=== PATIENT | male | born 1970 | race Caucasian/White ===

== ENCOUNTER 2016-08-02 16:20 | Observation (INO) ==
[2016-08-02 16:44] LABS: Basophils % 0.6 % (0.0-0.8); Eosinophils # 0.3 10*3/uL (0.0-0.87); Eosinophils % 4.4 % (0.00-10.9); Hematocrit 35.7 VOL% (42.0-52.0); Hemoglobin 12.7 GM/DL (14.0-18.0); Immature Granulocytes % 0.3 %; Immature Granulocytes Absolute 0.02 #; Lymphocytes % 29.2 % (21.2-54.2); Mean Corpuscular HGB Conc 35.6 GM/DL (32-36); Mean Corpuscular Hemoglobin 31 PG (27-34); Mean Corpuscular Volume 87.5 FL (87-102); Mean Platelet Volume 10.5 FL (9.6-12.0); Monocytes # 0.5 10*3/uL (0.11-0.8); Monocytes % 7.2 % (1.7-12.7); Neutrophils % 58.3 % (38.7-73.9); Platelet Count 182 T/CUMM (130-400); Red Blood Count 4.08 MC/CUMM (3.8-5.5); Red Cell Distribution Width 13.2 % (9.3-17.3); White Blood Count 6.8 T/CUMM (4-12)
[2016-08-02 16:57] LABS: PT Patient Result 10.7 SECS; Partial Thromboplastin Time 30.4 SECS (0-40)
[2016-08-02 17:02] LABS: Magnesium 1.9 MG/DL (1.8-2.4)
--- NOTE | 2016-08-02 17:07 | XRay Report ---
XR chest 2V Indication: Chest pain. Chest 2 views: Comparison 07/20/2015. Lungs are somewhat hypoinflated on the current exam. Mild peribronchial thickening noted centrally. No focal infiltrate is seen. Heart size and mediastinal contour normal. Impression: Minimal airways disease such as bronchitis or viral syndrome. Findings unchanged from the earlier study. PROCEDURE INTERPRETED AT [facility] DEPARTMENT OF RADIOLOGY Final Report Signed by: Alexander Ryan M.D.
[2016-08-02 17:08] LABS: Alanine Aminotransferase 41 U/L (16-61); Albumin 3.3 G/DL (3.4-5.0); Alkaline Phosphatase 78 U/L (45-117); Aspartate Amino Transferase 26 U/L (0-37); Bilirubin,Total < 0.39 MG/DL (0.2-1.0); Blood Urea Nitrogen 19 MG/DL (7-18); Calcium 8.8 MG/DL (8.5-10.1); Glucose 303 MG/DL (74-106); Osmolality,Calculated 287.7 MOS/KG (273-304); Potassium 3.9 MMOL/L (3.5-5.1); Sodium 138 MMOL/L (136-145); Total Protein 6.3 G/DL (6.4-8.3)
[2016-08-02] MEDS ORDERED: MORPHINE 2 MG/1 ML SYRINGE IV STA (17:10)
[2016-08-02] MEDS ORDERED: ONDANSETRON 4 MG/2 ML VIAL IV STA (17:10)
--- NOTE | 2016-08-02 17:12 | Emergency Department Note ---
IAmelie Brittany, am scribing for, and in the presence of, Desi Chu DO 17: 05. IVlad Debra, DO, personally performed the services described in this documentation, ascribed by Vira Kinsey in my presence, and it is both accurate and complete 712 . Arrival - Arrival Chief Complaint: Chest Pain Stated Complaint: CP ED Nursing Triage Note: Pt c/o Chest pain after eating breakfast this am ( pressure) with nausea. Pt had 2 stents placed at [facility] 4 days ago. Mode of Arrival: Stretcher Limitations: No Limitations Source: Patient Time Seen by Provider: 08/02/16 16:55 - History of Present Illness HPI Narrative: This is a 45 y/o mildly obese white male,who presents to the ED by EMS with c/o CP which started earlier this morning. He states he was seen in [facility] and had 2 stents placed 4 days ago. He reports he is nauseated with the chest pain. He rates the pain as a 6 on a pain scale. He states before EMS arrived at his home , the pain was an 8. He states he received Nitro from EMS which seemed to help mildly. Pt has no other complaints/pain in the ED at this time. PT has a PMHx of CAD, HTN, psychiatric/substance abuse Tx, dyslipidemia, GERD, bowel obstruction, liver problems, pancreatitis, back/neck problems, pseduocyst abdoment, and herniated disk. Pt has had a cardiac cath x 2 stents (Apirl 2016), colon surgery, colecystectomy, and hernia repair. Pt has a family medical hx of lung cancer. Onset (ago): hour(s) (Started ealier this morning) Consistency: constant Severity: moderate Severity scale (1-10): 6 Allergies/Adverse Reactions: Allergies Allergy/AdvReac Type Severity Reaction Status Date / Time No Known Allergies Allergy Verified 06/28/16 10:08 Home Medications: Home Medications Medication Instructions Recorded Confirmed Type Gabapentin 600 mg PO TID #90 capsule 06/28/15 06/28/16 Rx HYDROcodone/ACETAMIN 10-325 [[place] 1 tablet PO BID 12/02/15 06/28/16 History 10-325] busPIRone [Buspar] 5 mg PO DAILY 12/02/15 06/28/16 History hydroCHLOROthiazide 25 mg PO DAILY 12/02/15 06/28/16 History [Hydrochlorothiazide] oxyCODONE/ACETAMINOPHEN 5-325 1 - 2 tablet PO Q6H PRN #20 tablet 12/05/15 Rx [Percocet 5-325] Benzonatate [Tessalon] 100 mg PO TID #10 capsule 06/21/16 06/28/16 Rx metFORMIN [Glucophage] 500 mg PO BID W/MEALS #30 tablet 06/26/16 06/28/16 Rx Dicyclomine Cap/Tab [Bentyl 10 mg PO DAILY PRN #10 capsule 06/28/16 Rx Cap/Tab] Metoclopramide Tab [Reglan Tab] 5 mg PO ACHS #120 tablet 06/28/16 Rx Polyethylene Glycol Powder 17 gm PO DAILY #12 pack 06/28/16 Rx [Miralax] Review of System - Review of System 12 point system: reviewed and no additional remarkable complaints except as stated - Review of System Cardiovascular: Present: chest pain Gastrointestinal: Present: nausea Medical,Surgical,& Family Hx - Medical History Cardio: History of: CAD, Hypertension Psychological: History of: Anxiety Disorders, Psychiatric/Substance Abuse Tx Endocrine: History of: Dyslipidemia Renal: History of: Dialysis (RESOLVED) Gastrointestinal: History of: Bowel Obstruction, GERD, Liver Problems, Pancreatitis, GI Problems (pseudocyst abdomen) Musculoskeletal: History of: Back/Neck Problems, Herniated Disk (disk x 4) - Surgical History Cardiac Surgeries: Sugical HX of: Cardiac Catheterization (x 2 Stents at [facility] May of 2016) Abdominal Surgeries: Surgical HX of: Abdominal Surgery (colon), Cholecystectomy , Hernia Repair - Family History Family History: Reports;: Family Cancer (dad had lung cancer) - Social History Smoking Status: Smoker, status unknown Frequency of Alcohol Use: Frequently Exam Vital Signs: Vital Signs Temperature 97.5 F L 08/02/16 16:50 Pulse Rate 65 08/02/16 16:50 Respiratory Rate 16 08/02/16 16:50 Blood Pressure 102/63 08/02/16 16:50 O2 Sat by Pulse Oximetry 98 08/02/16 16:27 - General General appearance: alert, in no apparent distress, obese (Mildy obese) - Head Head exam: Present: atraumatic, normocephalic, normal inspection - Eye Eye exam: Present: normal appearance, PERRL, EOMI. Absent: nystagmus, miosis, mydriasis - ENT ENT exam: Present: normal exam, normal oropharynx, mucous membranes moist, TM's normal bilaterally, normal external ear exam - Neck Neck exam: Present: normal inspection, full ROM, trachea midline. Absent: tenderness, meningismus, lymphadenopathy, thyromegaly - Chest Chest inspection: Present: normal inspection, symmetric chest wall rise. Absent : tenderness, rash, abscess - Respiratory Respiratory exam: Present: normal lung sounds bilaterally. Absent: prolonged expiratory phase, rales, respiratory distress, rhonchi, stridor, wheezes - Cardiovascular Cardiovascular exam: Present: regular rate, normal rhythm, normal heart sounds. Absent: murmur, rubs, gallop, clicks, JVD - Abdominal Exam Abdominal exam: Present: soft, normal bowel sounds. Absent: distention, tenderness, guarding, rebound, rigidity - Rectal Exam Rectal exam: Present: deferred - Extremities Exam Extremities exam: Present: normal inspection, full ROM, normal capillary refill. Absent: tenderness, pedal edema, joint swelling, calf tenderness - Back Exam Back exam: Present: normal inspection, full ROM. Absent: tenderness, muscle spasm, rashes - Neurological Exam Neurological exam: Present: alert, oriented X3, CN II-XII intact. Absent: motor sensory deficit - Psychiatric Psychiatric exam: Present: anxious. Absent: normal affect, normal mood, flat affect, manic - Skin Skin exam: Present: warm, dry, intact, normal color. Absent: rash, cyanosis, diaphoresis, erythema, pallor, mottled Results - Labs CBC & BMP: 08/02/16 16:37 08/02/16 16:37 Lab Results: I have reviewed the patients labs Labs: Laboratory Tests 08/02/16 08/02/16 08/02/16 16:37 16:37 16:37 WBC 6.8 RBC 4.08 Hgb 12.7 L Hct 35.7 L MCV 87.5 MCH 31 MCHC 35.6 RDW 13.2 Plt Count 182 MPV 10.5 Neut % (Auto) 58.3 Lymph % (Auto) 29.2 [place] % (Auto) 7.2 Eos % (Auto) 4.4 Baso % (Auto) 0.6 Neut # (Auto) 4.0 Lymph # (Auto) 2.0 [place] # (Auto) 0.5 Eos # (Auto) 0.3 Baso # (Auto) 0.0 Immature Gran % 0.3 Nucleated RBC % 0.0 Immature Gran # 0.02 Nucleated RBCs # 0.00 INR 1.0 PT Patient/Control Mix 10.7 Circ Anticoag PTT 30.4 D Sodium 138 Potassium 3.9 Chloride 104 Carbon Dioxide 26 Anion Gap 11.9 BUN 19 H Creatinine 1.10 GFR Calculation 102 BUN/Creatinine Ratio 17.00 Glucose 303 H Calculated Osmolality 287.7 Calcium 8.8 Magnesium Total Bilirubin < 0.39 AST 26 ALT 41 Alkaline Phosphatase 78 Total Creatine Kinase CK-MB (CK-2) Troponin I Total Protein 6.3 L Albumin 3.3 L Globulin 3.0 Albumin/Globulin Ratio 1.1 Lipase Urine Color Urine Appearance Urine pH Ur Specific [place] Urine Protein Urine Glucose (UA) Urine Ketones Urine Blood Urine Nitrate Urine Bilirubin Urine Urobilinogen Urine Leukocytes Urine WBC Ur Squamous Epith Cells Ur Culture Indicated? 08/02/16 08/02/16 08/02/16 16:37 16:37 17:12 WBC RBC Hgb Hct MCV MCH MCHC RDW Plt Count MPV Neut % (Auto) Lymph % (Auto) [place] % (Auto) Eos % (Auto) Baso % (Auto) Neut # (Auto) Lymph # (Auto) [place] # (Auto) Eos # (Auto) Baso # (Auto) Immature Gran % Nucleated RBC % Immature Gran # Nucleated RBCs # INR PT Patient/Control Mix Circ Anticoag PTT Sodium Potassium Chloride Carbon Dioxide Anion Gap BUN Creatinine GFR Calculation BUN/Creatinine Ratio Glucose Calculated Osmolality Calcium Magnesium 1.9 Total Bilirubin AST ALT Alkaline Phosphatase Total Creatine Kinase 77 CK-MB (CK-2) 1.6 Troponin I 6.010 H Total Protein Albumin Globulin Albumin/Globulin Ratio Lipase 496.0 H Urine Color Urine Appearance Urine pH Ur Specific [place] Urine Protein Urine Glucose (UA) Urine Ketones Urine Blood Urine Nitrate Urine Bilirubin Urine Urobilinogen Urine Leukocytes Urine WBC Ur Squamous Epith Cells Ur Culture Indicated? 08/02/16 17:13 WBC RBC Hgb Hct MCV MCH MCHC RDW Plt Count MPV Neut % (Auto) Lymph % (Auto) [place] % (Auto) Eos % (Auto) Baso % (Auto) Neut # (Auto) Lymph # (Auto) [place] # (Auto) Eos # (Auto) Baso # (Auto) Immature Gran % Nucleated RBC % Immature Gran # Nucleated RBCs # INR PT Patient/Control Mix Circ Anticoag PTT Sodium Potassium Chloride Carbon Dioxide Anion Gap BUN Creatinine GFR Calculation BUN/Creatinine Ratio Glucose Calculated Osmolality Calcium Magnesium Total Bilirubin AST ALT Alkaline Phosphatase Total Creatine Kinase CK-MB (CK-2) Troponin I Total Protein Albumin Globulin Albumin/Globulin Ratio Lipase Urine Color Yellow Urine Appearance Clear Urine pH 6.0 Ur Specific [place] 1.029 Urine Protein Negative Urine Glucose (UA) >=500 Urine Ketones 5 Urine Blood Negative Urine Nitrate Negative Urine Bilirubin Negative Urine Urobilinogen < 2.0 H Urine Leukocytes Negative Urine WBC 1 Ur Squamous Epith Cells Occasional Ur Culture Indicated? Not indicated - Diagnostic Findings Procedure: Chest x-ray: report reviewed by me (Minimal airways disease such as bronchitis or viral syndrome. Findings unchanged from the earlier study. ) Disposition Clinical Impression: Chest pain, Elevated troponin Case discussed with: patient Disposition: Still a Patient Condition: Stable Time of Disposition: 18:49
[2016-08-02] MEDS ORDERED: MORPHINE 2 MG/1 ML SYRINGE ONE (17:20)
[2016-08-02] MEDS ORDERED: ONDANSETRON 4 MG/2 ML VIAL ONE (17:20)
[2016-08-02 17:37] LABS: Apearance,Urine CLEAR (Clear); Bilirubin,Urine Negative (Negative); Blood, Urine Negative (Negative); Glucose,Urine (UA) >=500 mg/dL (Negative); Ketones,Urine 5 mg/dL (Negative); Nitrite,Urine Negative (Negative); Protein,Urine Negative; Squamous Epithelial Cell,Urine Occasional /HPF (0-10); Urine Color Yellow (Yellow); Urine Specific Gravity 1.029 (1.001-1.035); Urine Urobilinogen < 2.0 EU/DL (0.2-1.0); WBC,Urine 1 /HPF (0-6)
[2016-08-02 17:50] LABS: Barbiturates Screen,Urine Negative (Negative); Benzodiazepines Screen,Urine Positive (Negative); Cannabinoid Screen,Urine Negative (Negative); Opiate Screen,Urine Positive (Negative); Phencyclidine Screen,Urine Negative (Negative)
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
[2016-08-02] MEDS ORDERED: GLUCAGON 1 MG VIAL IM PRN ×3 (21:04)
[2016-08-02] MEDS ORDERED: DOCUSATE SODIUM 100 MG CAPSULE PO PRN (21:04)
[2016-08-02] MEDS ORDERED: DICYCLOMINE 10 MG CAPSULE PO PRN (21:04)
[2016-08-02] MEDS ORDERED: BISACODYL 5 MG TABLET PO PRN (21:04)
[2016-08-02] MEDS ORDERED: DEXTROSE 50% 25 GM/50 ML VIAL IV PRN ×3 (21:04)
[2016-08-02] MEDS ORDERED: ONDANSETRON 4 MG/2 ML VIAL IV PRN (21:04)
[2016-08-02] MEDS: INSULIN REGULAR 100 UNIT/ML SUBCUT SCH (21:44)
[2016-08-02] MEDS: ENOXAPARIN 40 MG/0.4 ML SYRINGE SUBCUT SCH (22:01)
[2016-08-02] MEDS: GABAPENTIN 300 MG CAPSULE PO SCH (22:01)
[2016-08-02] MEDS: METOCLOPRAMIDE 5 MG TABLET PO SCH (22:01)
[2016-08-02] MEDS: MORPHINE 2 MG/1 ML SYRINGE IV PRN (22:01)
[2016-08-02] MEDS: BENZONATATE 100 MG CAPSULE PO SCH (22:06)
[2016-08-03 00:56] LABS: Apearance,Urine CLEAR (Clear); Bilirubin,Urine Negative (Negative); Blood, Urine Negative (Negative); Glucose,Urine (UA) >=500 mg/dL (Negative); Ketones,Urine Negative (Negative); Mucus,Urine Occasional /LPF (Occasional); Nitrite,Urine Negative (Negative); Protein,Urine Negative; Urine Color Yellow (Yellow); Urine Specific Gravity 1.012 (1.001-1.035); Urine Urobilinogen < 2.0 EU/DL (0.2-1.0); WBC,Urine <1 /HPF (0-6)
[2016-08-03] MEDS: MORPHINE 2 MG/1 ML SYRINGE IV PRN (04:04)
--- NOTE | 2016-08-03 05:00 | EKG Report ---
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
[2016-08-03 05:20] LABS: Basophils # 0.1 10*3/uL (0.0-0.2); Basophils % 0.9 % (0.0-0.8); Eosinophils # 0.3 10*3/uL (0.0-0.87); Eosinophils % 4.9 % (0.00-10.9); Hematocrit 40.2 VOL% (42.0-52.0); Hemoglobin 13.7 GM/DL (14.0-18.0); Immature Granulocytes % 0.3 %; Immature Granulocytes Absolute 0.02 #; Lymphocytes # 2.1 10*3/uL (1.4-4.0); Lymphocytes % 32.6 % (21.2-54.2); Mean Corpuscular HGB Conc 34.1 GM/DL (32-36); Mean Corpuscular Hemoglobin 30 PG (27-34); Mean Corpuscular Volume 87.6 FL (87-102); Mean Platelet Volume 10.5 FL (9.6-12.0); Monocytes # 0.5 10*3/uL (0.11-0.8); Monocytes % 7.5 % (1.7-12.7); Neutrophils # 3.5 10*3/uL (1.4-7.4); Neutrophils % 53.8 % (38.7-73.9); Platelet Count 185 T/CUMM (130-400); Red Blood Count 4.59 MC/CUMM (3.8-5.5); Red Cell Distribution Width 13.3 % (9.3-17.3); White Blood Count 6.6 T/CUMM (4-12)
[2016-08-03 05:52] LABS: Osmolality,Calculated 287.3 MOS/KG (273-304); Potassium 4.2 MMOL/L (3.5-5.1); Risk Ratio 4.09; VLDL CHOLESTEROL 42.6 MG/DL
--- NOTE | 2016-08-03 07:13 | EKG Report ---
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
--- NOTE | 2016-08-03 07:13 | EKG Report ---
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
--- NOTE | 2016-08-03 08:09 | EKG Report ---
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
[2016-08-03] MEDS: INSULIN REGULAR 100 UNIT/ML SUBCUT SCH ×3 (08:13→16:56)
[2016-08-03] MEDS ORDERED: ATORVASTATIN 40 MG TABLET PO SCH (09:00)
--- NOTE | 2016-08-03 09:32 | Cardiology Consult Note ---
Assessment and Plan (1) Chest pain Status: Acute Assessment and plan: 1. 45-year-old white male smoker with history of alcoholism (no alcohol for about 12 days), reportedly had KS at [facility] with several stents placed 5 days ago, who presented here with waxing and waning chest pain for hours lasting up to 30 minutes at a time with no acute EKG changes, and troponin elevation (normal CK and CK-MB) which is gradually declining consistent with previous KS last week. 2. History of pseudocyst and multiple abdominal surgeries, reportedly last 3 years ago; he also had complicated open cholecystectomy with adhesions one year ago by Dr. Schmidt. He takes chronic Jessie for abdominal pain. 3. He is anxious about having heart problems, although his chest pain is atypical and has pleuritic component with no exertional component. However given his recent stents and KS will need to get his records from [facility] did this determine whether he needs further evaluation for coronary ischemia. 4. We discussed the absolute need to stop all smoking immediately; he is agree with this and requests nicotine patch. Current Visit: Yes History of Present Illness - Consult Narrative History of present illness: Mr. Mcclendon is a 45 year old male who had an arrest associated with falling off a ladder a couple years ago, has had multiple ER admissions with hyperglycemia and miscellaneous complaints. He seems to have chronic abdominal pain for which he takes outpatient narcotics with cholecystectomy with adhesions a year ago. He reportedly had a pseudocyst with multiple surgeries from pancreatitis and his alcoholism several years ago. He reportedly had an KS at [facility] when he was cutting the grass in [facility]. He reportedly put multiple stents 5 days ago. He reported 9 AM yesterday he developed persistent chest pain which waxed and waned lasting 15-30 minutes at a time. There was a pleuritic component. He felt better when he laid on his back oftentimes. He had no change with walking. It is substernal he reports it is "similar like my heart attack pain but a lot less". Admission here he had no acute EKG changes but had elevated troponin which is gradually declining consistent with previous KS last week. He has no shortness of breath and is now without complaint, but is anxious about his heart. He continued to smoke but has not had one since yesterday. He has been off alcohol for 10 days and was in a rehab facility when the pain started ([facility]). He did have recurrence of his chest pain this morning although it did resolve in the time I saw him. CC: Erinn Srinivasan MD - Home Medications and Allergies Home Medications: Home Medications Medication Instructions Recorded Confirmed Type Gabapentin 600 mg PO TID #90 capsule 06/28/15 08/02/16 Rx HYDROcodone/ACETAMIN 10-325 [Jessie 1 tablet PO BID 12/02/15 08/02/16 History 10-325] busPIRone [Buspar] 5 mg PO DAILY 12/02/15 08/02/16 History hydroCHLOROthiazide 25 mg PO DAILY 12/02/15 08/02/16 History [Hydrochlorothiazide] oxyCODONE/ACETAMINOPHEN 5-325 1 - 2 tablet PO Q6H PRN #20 tablet 12/05/15 Rx [Percocet 5-325] Benzonatate [Tessalon] 100 mg PO TID #10 capsule 06/21/16 08/02/16 Rx metFORMIN [Glucophage] 500 mg PO BID W/MEALS #30 tablet 06/26/16 08/02/16 Rx Dicyclomine Cap/Tab [Bentyl 10 mg PO DAILY PRN #10 capsule 06/28/16 08/02/16 Rx Cap/Tab] Metoclopramide Tab [Reglan Tab] 5 mg PO ACHS #120 tablet 06/28/16 08/02/16 Rx Polyethylene Glycol Powder 17 gm PO DAILY #12 pack 06/28/16 08/02/16 Rx [Miralax] Aspirin 81 mg PO DAILY 08/03/16 08/03/16 History Atorvastatin [Lipitor] 40 mg PO DAILY 08/03/16 08/03/16 History Ticagrelor [Brilinta] 90 mg PO DAILY 08/03/16 08/03/16 History Allergies/Adverse Reactions: Allergies Allergy/AdvReac Type Severity Reaction Status Date / Time No Known Allergies Allergy Verified 06/28/16 10:08 Medical,Surgical,& Family Hx - Medical History Cardio: History of: CAD, Hypertension, KS Psychological: History of: Anxiety Disorders, Psychiatric/Substance Abuse Tx Endocrine: History of: Dyslipidemia Gastrointestinal: History of: Bowel Obstruction, GERD, Liver Problems, Pancreatitis, GI Problems (pseudocyst abdomen) Musculoskeletal: History of: Back/Neck Problems, Herniated Disk (disk x 4) - Surgical History Cardiac Surgeries: Sugical HX of: Cardiac Catheterization (x 2 Stents at [facility] May of 2016) Abdominal Surgeries: Surgical HX of: Abdominal Surgery (colon), Cholecystectomy , Hernia Repair - Family History Family History: Reports;: Family Cancer (dad had lung cancer) - Social History Smoking Status: Current every day smoker Frequency of Alcohol Use: Frequently Type of Drug Use: None Physical Examination Vital Signs Temp Pulse Resp BP Pulse Ox 97.5 F L 65 16 102/63 98 08/02/16 16:27 08/02/16 16:27 08/02/16 16:27 08/02/16 16:27 08/02/16 16:27 General: Present: Appears Well, No Apparent Distress Neck: Present: Supple Neck, Midline Trachea, No JVD/HJR Cardiac: Present: Bradycardia. Absent: Systolic Murmur, Diastolic Murmur Lungs: Present: No Wheeze, Rales, Rhonchi. Absent: Wheezes Neuro: Absent: DTR Norm/Equal U/L Extrem Abdomen: Present: Soft. Absent: Tender Extremities: Absent: Edema, Cool Result/EKG - Labs CBC & BMP: 08/03/16 05:05 08/03/16 05:05 Labs: Laboratory Results - last 24 hr 08/02/16 08/02/16 08/02/16 16:37 16:37 16:37 WBC 6.8 RBC 4.08 Hgb 12.7 L Hct 35.7 L MCV 87.5 MCH 31 MCHC 35.6 RDW 13.2 Plt Count 182 MPV 10.5 Neut % (Auto) 58.3 Lymph % (Auto) 29.2 [place] % (Auto) 7.2 Eos % (Auto) 4.4 Baso % (Auto) 0.6 Neut # (Auto) 4.0 Lymph # (Auto) 2.0 [place] # (Auto) 0.5 Eos # (Auto) 0.3 Baso # (Auto) 0.0 Immature Gran % 0.3 Nucleated RBC % 0.0 Immature Gran # 0.02 Nucleated RBCs # 0.00 INR 1.0 PT Patient/Control Mix 10.7 D-Dimer, Quantitative Circ Anticoag PTT 30.4 D Sodium 138 Potassium 3.9 Chloride 104 Carbon Dioxide 26 Anion Gap 11.9 BUN 19 H Creatinine 1.10 GFR Calculation 102 BUN/Creatinine Ratio 17.00 Glucose 303 H POC Glucose Calculated Osmolality 287.7 Calcium 8.8 Magnesium Total Bilirubin < 0.39 AST 26 ALT 41 Alkaline Phosphatase 78 Total Creatine Kinase CK-MB (CK-2) Troponin I B-Natriuretic Peptide Total Protein 6.3 L Albumin 3.3 L Globulin 3.0 Albumin/Globulin Ratio 1.1 Triglycerides Cholesterol LDL Cholesterol VLDL Cholesterol HDL Cholesterol Heart Disease Risk Ratio Lipase b-Hydroxybutyric mmol/L TSH 3rd Generation Urine Color Urine Appearance Urine pH Ur Specific [place] Urine Protein Urine Glucose (UA) Urine Ketones Urine Blood Urine Nitrate Urine Bilirubin Urine Urobilinogen Urine Leukocytes Urine WBC Ur Squamous Epith Cells Urine Mucus Ur Culture Indicated? Urine Opiates Screen Ur Barbiturates Screen Ur Phencyclidine Scrn U Amphetamine/Methamph U Benzodiazepines Scrn U Cocaine Metab Screen U Cannabinoids Screen 08/02/16 08/02/16 08/02/16 16:37 16:37 17:12 WBC RBC Hgb Hct MCV MCH MCHC RDW Plt Count MPV Neut % (Auto) Lymph % (Auto) [place] % (Auto) Eos % (Auto) Baso % (Auto) Neut # (Auto) Lymph # (Auto) [place] # (Auto) Eos # (Auto) Baso # (Auto) Immature Gran % Nucleated RBC % Immature Gran # Nucleated RBCs # INR PT Patient/Control Mix D-Dimer, Quantitative Circ Anticoag PTT Sodium Potassium Chloride Carbon Dioxide Anion Gap BUN Creatinine GFR Calculation BUN/Creatinine Ratio Glucose POC Glucose Calculated Osmolality Calcium Magnesium 1.9 Total Bilirubin AST ALT Alkaline Phosphatase Total Creatine Kinase 77 CK-MB (CK-2) 1.6 Troponin I 6.010 H B-Natriuretic Peptide Total Protein Albumin Globulin Albumin/Globulin Ratio Triglycerides Cholesterol LDL Cholesterol VLDL Cholesterol HDL Cholesterol Heart Disease Risk Ratio Lipase 496.0 H b-Hydroxybutyric mmol/L TSH 3rd Generation Urine Color Urine Appearance Urine pH Ur Specific [place] Urine Protein Urine Glucose (UA) Urine Ketones Urine Blood Urine Nitrate Urine Bilirubin Urine Urobilinogen Urine Leukocytes Urine WBC Ur Squamous Epith Cells Urine Mucus Ur Culture Indicated? Urine Opiates Screen Ur Barbiturates Screen Ur Phencyclidine Scrn U Amphetamine/Methamph U Benzodiazepines Scrn U Cocaine Metab Screen U Cannabinoids Screen 08/02/16 08/02/16 08/02/16 17:13 17:13 18:26 WBC RBC Hgb Hct MCV MCH MCHC RDW Plt Count MPV Neut % (Auto) Lymph % (Auto) [place] % (Auto) Eos % (Auto) Baso % (Auto) Neut # (Auto) Lymph # (Auto) [place] # (Auto) Eos # (Auto) Baso # (Auto) Immature Gran % Nucleated RBC % Immature Gran # Nucleated RBCs # INR PT Patient/Control Mix D-Dimer, Quantitative Circ Anticoag PTT Sodium Potassium Chloride Carbon Dioxide Anion Gap BUN Creatinine GFR Calculation BUN/Creatinine Ratio Glucose POC Glucose Calculated Osmolality Calcium Magnesium Total Bilirubin AST ALT Alkaline Phosphatase Total Creatine Kinase CK-MB (CK-2) Troponin I B-Natriuretic Peptide Total Protein Albumin Globulin Albumin/Globulin Ratio Triglycerides Cholesterol LDL Cholesterol VLDL Cholesterol HDL Cholesterol Heart Disease Risk Ratio Lipase b-Hydroxybutyric mmol/L 0.1 TSH 3rd Generation Urine Color Yellow Urine Appearance Clear Urine pH 6.0 Ur Specific [place] 1.029 Urine Protein Negative Urine Glucose (UA) >=500 Urine Ketones 5 Urine Blood Negative Urine Nitrate Negative Urine Bilirubin Negative Urine Urobilinogen < 2.0 H Urine Leukocytes Negative Urine WBC 1 Ur Squamous Epith Cells Occasional Urine Mucus Ur Culture Indicated? Not indicated Urine Opiates Screen Positive H Ur Barbiturates Screen Negative Ur Phencyclidine Scrn Negative U Amphetamine/Methamph Negative U Benzodiazepines Scrn Positive H U Cocaine Metab Screen Negative U Cannabinoids Screen Negative 08/02/16 08/02/16 08/02/16 22:09 22:09 22:09 WBC RBC Hgb Hct MCV MCH MCHC RDW Plt Count MPV Neut % (Auto) Lymph % (Auto) [place] % (Auto) Eos % (Auto) Baso % (Auto) Neut # (Auto) Lymph # (Auto) [place] # (Auto) Eos # (Auto) Baso # (Auto) Immature Gran % Nucleated RBC % Immature Gran # Nucleated RBCs # INR PT Patient/Control Mix D-Dimer, Quantitative <= 0.5 Circ Anticoag PTT Sodium Potassium Chloride Carbon Dioxide Anion Gap BUN Creatinine GFR Calculation BUN/Creatinine Ratio Glucose POC Glucose Calculated Osmolality Calcium Magnesium Total Bilirubin AST ALT Alkaline Phosphatase Total Creatine Kinase CK-MB (CK-2) Troponin I B-Natriuretic Peptide 30 Total Protein Albumin Globulin Albumin/Globulin Ratio Triglycerides Cholesterol LDL Cholesterol VLDL Cholesterol HDL Cholesterol Heart Disease Risk Ratio Lipase b-Hydroxybutyric mmol/L TSH 3rd Generation 6.950 H Urine Color Urine Appearance Urine pH Ur Specific [place] Urine Protein Urine Glucose (UA) Urine Ketones Urine Blood Urine Nitrate Urine Bilirubin Urine Urobilinogen Urine Leukocytes Urine WBC Ur Squamous Epith Cells Urine Mucus Ur Culture Indicated? Urine Opiates Screen Ur Barbiturates Screen Ur Phencyclidine Scrn U Amphetamine/Methamph U Benzodiazepines Scrn U Cocaine Metab Screen U Cannabinoids Screen 08/02/16 08/03/16 08/03/16 22:09 00:00 01:34 WBC RBC Hgb Hct MCV MCH MCHC RDW Plt Count MPV Neut % (Auto) Lymph % (Auto) [place] % (Auto) Eos % (Auto) Baso % (Auto) Neut # (Auto) Lymph # (Auto) [place] # (Auto) Eos # (Auto) Baso # (Auto) Immature Gran % Nucleated RBC % Immature Gran # Nucleated RBCs # INR PT Patient/Control Mix D-Dimer, Quantitative Circ Anticoag PTT Sodium Potassium Chloride Carbon Dioxide Anion Gap BUN Creatinine GFR Calculation BUN/Creatinine Ratio Glucose POC Glucose Calculated Osmolality Calcium Magnesium Total Bilirubin AST ALT Alkaline Phosphatase Total Creatine Kinase 71 CK-MB (CK-2) 1.4 Troponin I 5.670 H 5.410 H B-Natriuretic Peptide Total Protein Albumin Globulin Albumin/Globulin Ratio Triglycerides Cholesterol LDL Cholesterol VLDL Cholesterol HDL Cholesterol Heart Disease Risk Ratio Lipase b-Hydroxybutyric mmol/L TSH 3rd Generation Urine Color Yellow Urine Appearance Clear Urine pH 5.0 Ur Specific [place] 1.012 Urine Protein Negative Urine Glucose (UA) >=500 Urine Ketones Negative Urine Blood Negative Urine Nitrate Negative Urine Bilirubin Negative Urine Urobilinogen < 2.0 H Urine Leukocytes Negative Urine WBC <1 Ur Squamous Epith Cells Urine Mucus Occasional Ur Culture Indicated? Not indicated Urine Opiates Screen Ur Barbiturates Screen Ur Phencyclidine Scrn U Amphetamine/Methamph U Benzodiazepines Scrn U Cocaine Metab Screen U Cannabinoids Screen 08/03/16 08/03/16 08/03/16 05:05 05:05 05:05 WBC 6.6 RBC 4.59 Hgb 13.7 L Hct 40.2 L MCV 87.6 MCH 30 MCHC 34.1 RDW 13.3 Plt Count 185 MPV 10.5 Neut % (Auto) 53.8 Lymph % (Auto) 32.6 [place] % (Auto) 7.5 Eos % (Auto) 4.9 Baso % (Auto) 0.9 H Neut # (Auto) 3.5 Lymph # (Auto) 2.1 [place] # (Auto) 0.5 Eos # (Auto) 0.3 Baso # (Auto) 0.1 Immature Gran % 0.3 Nucleated RBC % 0.0 Immature Gran # 0.02 Nucleated RBCs # 0.00 INR PT Patient/Control Mix D-Dimer, Quantitative Circ Anticoag PTT Sodium 141 Potassium 4.2 Chloride 107 Carbon Dioxide 27 Anion Gap 11.2 BUN 15 Creatinine 1.00 GFR Calculation 114 BUN/Creatinine Ratio 15.00 Glucose 202 H POC Glucose Calculated Osmolality 287.3 Calcium 9.0 Magnesium Total Bilirubin AST ALT Alkaline Phosphatase Total Creatine Kinase 60 CK-MB (CK-2) 1.6 Troponin I 5.570 H B-Natriuretic Peptide Total Protein Albumin Globulin Albumin/Globulin Ratio Triglycerides 213 H Cholesterol 131 LDL Cholesterol 80.0 VLDL Cholesterol 42.6 HDL Cholesterol 32 L Heart Disease Risk Ratio 4.09 Lipase 452.0 H b-Hydroxybutyric mmol/L TSH 3rd Generation Urine Color Urine Appearance Urine pH Ur Specific [place] Urine Protein Urine Glucose (UA) Urine Ketones Urine Blood Urine Nitrate Urine Bilirubin Urine Urobilinogen Urine Leukocytes Urine WBC Ur Squamous Epith Cells Urine Mucus Ur Culture Indicated? Urine Opiates Screen Ur Barbiturates Screen Ur Phencyclidine Scrn U Amphetamine/Methamph U Benzodiazepines Scrn U Cocaine Metab Screen U Cannabinoids Screen 08/03/16 07:14 WBC RBC Hgb Hct MCV MCH MCHC RDW Plt Count MPV Neut % (Auto) Lymph % (Auto) [place] % (Auto) Eos % (Auto) Baso % (Auto) Neut # (Auto) Lymph # (Auto) [place] # (Auto) Eos # (Auto) Baso # (Auto) Immature Gran % Nucleated RBC % Immature Gran # Nucleated RBCs # INR PT Patient/Control Mix D-Dimer, Quantitative Circ Anticoag PTT Sodium Potassium Chloride Carbon Dioxide Anion Gap BUN Creatinine GFR Calculation BUN/Creatinine Ratio Glucose POC Glucose 151 H Calculated Osmolality Calcium Magnesium Total Bilirubin AST ALT Alkaline Phosphatase Total Creatine Kinase CK-MB (CK-2) Troponin I B-Natriuretic Peptide Total Protein Albumin Globulin Albumin/Globulin Ratio Triglycerides Cholesterol LDL Cholesterol VLDL Cholesterol HDL Cholesterol Heart Disease Risk Ratio Lipase b-Hydroxybutyric mmol/L TSH 3rd Generation Urine Color Urine Appearance Urine pH Ur Specific [place] Urine Protein Urine Glucose (UA) Urine Ketones Urine Blood Urine Nitrate Urine Bilirubin Urine Urobilinogen Urine Leukocytes Urine WBC Ur Squamous Epith Cells Urine Mucus Ur Culture Indicated? Urine Opiates Screen Ur Barbiturates Screen Ur Phencyclidine Scrn U Amphetamine/Methamph U Benzodiazepines Scrn U Cocaine Metab Screen U Cannabinoids Screen
[2016-08-03] MEDS: TICAGRELOR 90 MG TABLET PO SCH (10:12)
[2016-08-03] MEDS: ASPIRIN CHEW 81 MG TABLET PO SCH (10:12)
[2016-08-03] MEDS: METOCLOPRAMIDE 5 MG TABLET PO SCH ×4 (10:12→21:10)
[2016-08-03] MEDS: hydroCHLOROthiazide 25 MG TABLET PO SCH (10:13)
[2016-08-03] MEDS: FOLIC ACID 1 MG TABLET PO SCH (10:13)
[2016-08-03] MEDS: busPIRone 5 MG TABLET PO SCH (10:13)
[2016-08-03] MEDS: GABAPENTIN 300 MG CAPSULE PO SCH ×3 (10:14→21:10)
[2016-08-03] MEDS: POLYETHYLENE GLYCOL POWDER 17 GM PACK PO SCH (10:14)
[2016-08-03] MEDS: ATORVASTATIN 40 MG TABLET PO SCH (10:15)
[2016-08-03] MEDS: MULTIVITAMIN (OCUVITE) TABLET PO SCH (10:15)
[2016-08-03] MEDS: ISOSORBIDE MONONITRATE 30 MG TABLET PO SCH (10:16)
[2016-08-03] MEDS: THIAMINE 100 MG TABLET PO SCH (10:16)
[2016-08-03] MEDS: NICOTINE 14 MG/24 HR PATCH TRANSDERM SCH (10:16)
[2016-08-03] MEDS: PANTOPRAZOLE 40 MG TABLET PO SCH (10:19)
[2016-08-03] MEDS: LISINOPRIL 2.5 MG TABLET PO SCH (10:19)
[2016-08-03] MEDS: BENZONATATE 100 MG CAPSULE PO SCH ×2 (10:21→15:59)
--- NOTE | 2016-08-03 13:32 | ECHO Report ---
Bry Mcclendon Exam Date: 08/03/2016 09:16 Referring Physician: Technologist: Raven Shay YUNI Age: 45 Ht (in): 71 Wt (lb): 228 Gender: M Exam Location: [facility] Echo Indications: Chest pain, unspecified, [place] with stents 5 days ago, hx alcoholism, Nicotine dependence, cigarettes, uncomplicated, Essential (primary) hypertension BP: 101 / 62 HR: 52 Rhythm: Sinus Technical Quality: IMPRESSIONS 1-2+ left atrial enlargement 1+ concentric LVH Normal LV systolic function with ejection fraction estimated 55% without segmental wall motion abnormality No significant valve abnormalitiy noted MEASUREMENTS (Male / Female) Normal Values 2D ECHO LV Diastolic Diameter PLAX 5.5 cm 4.2 - 5.9 / 3.9 - 5.3 cm LV Systolic Diameter PLAX 4.0 cm LV Fractional Shortening PLAX 27.5 % IVS Diastolic Thickness 1.2 cm 0.6 - 1.0 / 0.6 - 0.9 cm LVPW Diastolic Thickness 1.2 cm 0.6 - 1.0 / 0.6 - 0.9 cm RV Internal Dim ED PLAX 3.6 cm Aortic Root Diameter 3.6 cm LA Systolic Diameter LX 4.4 cm 3.0 - 4.0 / 2.7 - 3.8 cm FINDINGS Left Ventricle Normal left ventricular cavity size. Mild left ventricular hypertrophy. Left ventricular ejection fraction is estimated at Right Ventricle The right ventricle is normal in size and function. Right Atrium The right atrium is mildly enlarged. Left Atrium The left atrium is mildly enlarged. Mitral Valve Mildly thickened mitral valve. Trace mitral valve regurgitation. Aortic Valve Morphologically normal aortic valve without significant sclerosis or stenosis. There is no aortic regurgitation. Tricuspid Valve Morphologically normal tricuspid valve. Trace tricuspid valve regurgitation. Pulmonic Valve Morphologically normal pulmonic valve without significant stenosis. There is no pulmonic regurgitation. Pericardium Normal pericardium without effusion. Aorta Normal ascending aorta dimension. Ravinder Varma (Electronically Signed) Final Date: 03 August 2016 13:31
[2016-08-03] MEDS ORDERED: DIAZEPAM 5 MG TABLET PO ONE (14:05)
[2016-08-03] MEDS ORDERED: diphenhydrAMINE CAP 50 MG CAPSULE PO ONE (14:06)
[2016-08-03] MEDS ORDERED: diphenhydrAMINE CAP 25 MG CAPSULE PO ONE (14:07)
[2016-08-03] MEDS ORDERED: MAGNESIUM SULF RIDER 2 GM in PREMIX 1 EACH IV PRN (14:07)
[2016-08-03] MEDS ORDERED: POTASSIUM CHLORIDE RIDER 10 MEQ in PREMIX 1 EACH IV PRN (14:07)
--- NOTE | 2016-08-03 14:07 | Event Note ---
Mr. rea is very anxious about his coronary artery disease and recurrent chest pain. "Just do not let me doc". We are unable to get his records [facility]. Given his recent semi-intervention and similar chest pain recurrence (albeit with some atypical features), think heart catheterization this afternoon would be important to rule out significant CAD/stent malposition, etc. I discussed with the patient the risks and benefits of heart catheterization including but not limited to: , stroke, heart attack, vascular damage, reaction to medicine or dye, bleeding requiring blood transfusion, failure of the procedure, and the possible need for planned or emergency surgery. I have answered all the patient's questions regarding the procedure, and the patient is agreeable to proceed.
[2016-08-03] MEDS ORDERED: diphenhydrAMINE CAP 25 MG CAPSULE ONE (14:53)
[2016-08-03] MEDS ORDERED: DIAZEPAM 5 MG TABLET ONE (14:53)
[2016-08-03] MEDS ORDERED: LIDOCAINE 1% 20 ML VIAL ONE (14:55)
[2016-08-03] MEDS ORDERED: MIDAZOLAM 2 MG/2 ML VIAL ONE ×2 (14:56→15:06)
[2016-08-03] MEDS ORDERED: HYDROmorphone 2 MG/1 ML VIAL ONE (14:56)
--- NOTE | 2016-08-03 15:44 | Cardiac Catheterization ---
Date of Procedure:: 08/03/16 Post-op diagnosis: same Procedure: Procedure performed: 1. Left heart catheterization 2. Coronary angiography 3. Left ventriculography 4. Left femoral arteriotomy closed with Angio-Seal device Progress; scratch 45-year-old an ND and multiple stents at [facility] last Thursday who came in with recurrent chest pain with troponin elevation suggesting non-STEMI versus residual troponin from his previous event. Description of procedure: After obtaining informed consent, the left groin was prepped and draped in the usual sterile fashion. Next a short 6 Danish sheath was placed in the right femoral artery using a modified Seldinger technique, after the patient received IV sedation and local anesthetic. Next a JL4 catheter was advanced over a guidewire under fluoroscopic guidance, and was engaged to the left coronary artery after which angiography was performed in multiple views. This was then removed over a wire, and a JR4 catheter was advanced in similar fashion, and was engaged to the right coronary artery after which angiography was performed in multiple views. Next a bent pigtail catheter was advanced into the left ventricle, where hemodynamic measurements were obtained, and left ventriculography was performed. An angiogram of the sheath showed that it was inserted in the left common femoral artery in a vessel suitable for closure. Hemostasis was obtained with Angio-Seal device with no residual bleeding. 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 Coronary angiography: Left main coronary is nonexistent as there are separate ostia with somewhat larger than average LAD which is modestly ectatic causing somewhat delayed flow likely secondary to this. There is a widely patent mid LAD stent. There is a 30% mid LAD stenosis distal to this. The LAD wraps around the apex. There is one slightly thinner than average diagonal branch which bifurcates. The circumflex gives off to slightly larger than average caliber obtuse marginals. There are moderate irregularities in the circumflex without any discrete lesions. The right coronary artery is the dominant vessel is slightly larger than average caliber. Gives off an average caliber PDA and a thinner than average p.l. 1 with 60% mid stenosis. There is also thinner than average PL to MPL 3 branch. A widely patent proximal RCA stent is noted. Left ventriculography: Left ventricle normal size and normal LV systolic function. This project fraction is 60% without segmental wall motion normality. There is trivial mitral regurgitation. Impression: 1. Normal LV systolic function with ejection fraction is will be 60% without segmental wall motion abnormality. 2. Right dominant system 3. Trivial CAD as detailed above with widely patent proximal RCA and mid LAD stents Recommendation discussion: Given these findings is clearly Mr. Bhatti chest pain is not from acute coronary syndrome. The 60-70% stenosis of the mid PL is not significant given is well under 2 mm in diameter. There is normally function is reassuring with regard to cardiovascular prognosis. I discussed his absolute need to stop all smoking , and to avoid squatting strain lifting for the next week. I have also discussed the need for take his antiplatelet therapy without fail which is Brilinta and aspirin. Anesthesia: minimal conscious sedation Surgeon / Physician: Ravinder Varma Denture Laboratory Technician: other Estimated blood loss: minimal Specimens: none sent Condition: stable Disposition: floor - Medications / Follow-up
--- NOTE | 2016-08-03 16:26 | Hospitalist Progress Note ---
Assessment and Plan (1) ETOH abuse Status: Chronic Assessment and plan: Resume rehab Current Visit: No (2) Hypertension Status: Chronic Current Visit: No Qualifiers: Hypertension type: essential hypertension Qualified Code(s): I10 - Essential (primary) hypertension (3) Elevated troponin Status: Acute Current Visit: Yes (4) Chest pain Status: Acute Assessment and plan: No evidence of acute coronary obstruction. Troponin trending down. Current Visit: Yes Qualifiers: Chest pain type: other chest pain Qualified Code(s): R07.89 - Other chest pain; R07.8 - Other chest pain (5) Chronic pancreatitis Status: Chronic Current Visit: Yes Qualifiers: Pancreatitis type: alcohol induced Qualified Code(s): K86.0 - Alcohol- induced chronic pancreatitis Hospitalist: Subjective Interval history: Patient seen and examined. No acute events overnight. Case discussed with nursing staff. Labs reviewed. Case discussed with cardiology. Cardiac cath planned for this afternoon and results show no significant CAD with widely patent stents. The patient's chest pain is not related to his coronary artery disease. He was advised to discontinue the use of all tobacco products. He was seen outside smoking during this hospitalization. He will be discharged home tomorrow. Exam - Constitutional Vitals: Period Temp Pulse Resp BP Sys/Newton Pulse Ox Last 24 Hr 97.1 F-98.6 F 47-65 16-19 99-122/55-89 94-100 Exam: Constitutional System: No distress. No tremulousness. Head: Normocephalic, atraumatic. Ears, Nose and Throat System: No pain or tenderness. No epistaxis or discharge Eyes System: Pupils equal, round, and reactive. Extraocular muscles intact. Neck: Supple, without adenopathy, No jugular venous distention. Respiratory System: Chest clear to auscultation. Cardiovascular System: Heart with regular rate and rhythm. No murmur. GI System: Abdomen soft, nontender. Normo active bowel sounds present. Musculoskeletal System: limbs with no pedal edema. Full distal pulses. Neurological System: No discernable sensory deficit. No aphasia Psychiatric System: Conversation is rational Results - Labs CBC & BMP: 08/03/16 05:05 08/03/16 05:05 Lab Results: I have reviewed the past 24 hour labs
[2016-08-03] MEDS: ENOXAPARIN 40 MG/0.4 ML SYRINGE SUBCUT SCH (21:10)
[2016-08-04] MEDS: BENZONATATE 100 MG CAPSULE PO SCH ×3 (00:43→14:12)
[2016-08-04] MEDS: INSULIN REGULAR 100 UNIT/ML SUBCUT SCH ×4 (00:43→17:25)
[2016-08-04] MEDS: GABAPENTIN 300 MG CAPSULE PO SCH ×2 (08:56→14:12)
[2016-08-04] MEDS: PANTOPRAZOLE 40 MG TABLET PO SCH (08:56)
[2016-08-04] MEDS: MULTIVITAMIN (OCUVITE) TABLET PO SCH (08:56)
[2016-08-04] MEDS: ATORVASTATIN 40 MG TABLET PO SCH (08:56)
[2016-08-04] MEDS: TICAGRELOR 90 MG TABLET PO SCH (08:56)
[2016-08-04] MEDS: POLYETHYLENE GLYCOL POWDER 17 GM PACK PO SCH (08:57)
[2016-08-04] MEDS: METOCLOPRAMIDE 5 MG TABLET PO SCH ×3 (08:57→17:25)
[2016-08-04] MEDS: THIAMINE 100 MG TABLET PO SCH (08:57)
[2016-08-04] MEDS: busPIRone 5 MG TABLET PO SCH (08:57)
[2016-08-04] MEDS: hydroCHLOROthiazide 25 MG TABLET PO SCH (08:57)
[2016-08-04] MEDS: NICOTINE 14 MG/24 HR PATCH TRANSDERM SCH (08:57)
[2016-08-04] MEDS: LISINOPRIL 2.5 MG TABLET PO SCH (08:57)
[2016-08-04] MEDS: FOLIC ACID 1 MG TABLET PO SCH (08:57)
[2016-08-04] MEDS: ISOSORBIDE MONONITRATE 30 MG TABLET PO SCH (08:57)
[2016-08-04] MEDS: ASPIRIN CHEW 81 MG TABLET PO SCH (09:07)
--- NOTE | 2016-08-04 09:42 | Discharge Summary ---
Hospital Course - Hospital Course Hospital Course: Mr. rea is a 45-year-old white male that was admitted through the emergency department with chest pain and elevated troponins. His history significant for a recent myocardial infarction with cardiac cath and stenting done at [facility] in [place] approximately 1 week ago. He was readmitted here from outpatient alcohol rehab with complaints of chest pain. His cardiac enzymes were trending downward consistent with his history of recent myocardial infarction. The patient reports compliance with his medications but continues to smoke. He was seen in consultation by Dr. Angelo. He was taken for left heart cath with no significant abnormal findings. His recent stents were patent. He had no other critical stenosis and no need for further stenting. Please see the cardiac cath report for further details of the procedure. The patient has done well during the course of the hospitalization. His chest pain has improved. The patient has been ambulating and going outside to smoke despite several conversations with the nursing staff the medical coder and myself regarding smoking cessation. Mr. rea has reached maximal benefit from this inpatient hospitalization is being discharged home today to continue his home medications with the addition of Imdur and lisinopril. Both prescriptions were electronically transmitted to his pharmacy prior to discharge. His home medications were reviewed and reconciled. - Time spent with patient Time with patient DS: Greater than 30 minutes (Total discharge time for this patient, including [id number] time, clinical documentation, medication reconciliation, and discharge planning was 38 minutes.) Time spent discussing smoking cessation with patient: more than 10 minutes Diagnosis - Discharge Diagnosis (1) ETOH abuse Status: Chronic (2) Hypertension Status: Chronic (3) Elevated troponin Status: Acute (4) Chest pain Status: Resolved (5) Chronic pancreatitis Status: Chronic (6) Coronary artery disease Status: Chronic Specialty Discharge - Follow Up or Referrals - Speciality Discharge Instructions Cardiology Instructions: See routine post cardiac cath orders and instructions Discharge Plan - Discharge Data Disposition: Disch To Home/Self Care Condition at Discharge: Stable Discharge Diet: advance to your usual diet Activity: resume usual activities as tolerated Hygiene: no restrictions Weight Bearing at Discharge: full weight bearing Contact your physician if you experience:: fever over 101, Nausea/Vomiting, Shortness of breath, pain uncontrolled by pain medications - Discharge Medications New Lisinopril [Prinivil] 2.5 mg PO DAILY #30 tablet Nicotine 14 mg/24 Hr Patch [Nicoderm CQ 14 mg/24 hr Patch] 1 patch TRANSDERM DAILY patch Isosorbide Mononitrate [Imdur] 30 mg PO DAILY #30 tablet Multivitamin (Ocuvite) [Ocuvite] 1 tablet PO DAILY tablet Continue Gabapentin 600 mg PO TID #90 capsule busPIRone [Buspar] 5 mg PO DAILY HYDROcodone/ACETAMIN 10-325 [Stonewall 10-325] 1 tablet PO BID hydroCHLOROthiazide [Hydrochlorothiazide] 25 mg PO DAILY oxyCODONE/ACETAMINOPHEN 5-325 [Percocet 5-325] 1 - 2 tablet PO Q6H PRN #20 tablet PRN Reason: pain metFORMIN [Glucophage] 500 mg PO BID W/MEALS #30 tablet Polyethylene Glycol Powder [Miralax] 17 gm PO DAILY #12 pack Dicyclomine Cap/Tab [Bentyl Cap/Tab] 10 mg PO DAILY PRN #10 capsule PRN Reason: Abdominal Pain Atorvastatin [Lipitor] 40 mg PO DAILY Ticagrelor [Brilinta] 90 mg PO DAILY Aspirin 81 mg PO DAILY Benzonatate [Tessalon] 100 mg PO TID #10 capsule Metoclopramide Tab [Reglan Tab] 5 mg PO ACHS #120 tablet - Follow Up or Referral - Forms/Instructions Instructions: Coronary Artery Disease (GEN), Left Heart Catheterization (DC), How to Stop Smoking (GEN), Heart Healthy Diet (GEN), Cigarette Smoking and Your Health, 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 Follow- up with primary care physician and medical coder as scheduled. Stop smoking. Exam - Constitutional Vitals: Period Temp Pulse Resp BP Sys/Newton Pulse Ox Last 24 Hr 96.6 F-98.6 F 46-63 16-18 90-119/55-73 94-99 Discharge Results Procedures and tests throughout hospitalization: Left heart cath Labs on day of discharge: Labs from last 24 hours 08/04/16 08/03/16 08/03/16 07:11 16:46 11:27 POC Glucose 195 H 152 H 145 H - Imaging and Cardiology Cardiology Procedure: report reviewed by me DS: Provider Date of admission: 08/02/16 18:39 Primary care physician: . No PCP Attending physician on admission: Mehran Ansari MD Consults: 08/02/16 21:04 Consult to Physician [CONS] Routine Comment: Consulting Provider: Arben Maza Consulting Provider Notified: Yes Consult to Specialist Group: Cardiology When should Consulting Provider be notified: In am 08/03/16 00:21 Consult to Pastoral Services [CONS] Routine Comment: Pastoral Screen: Request Agri Business Agent Visit Pastoral Screen Source of Request: Patient 08/03/16 15:26 Consult to Cardiac Rehabilitation [CONS] Routine Reason for Cardiac Rehabilitation: Appt Out Pt Cardiac Rehab Consult Comment: recent VT/stents 08/04/16 08:38 Consult to Case Mgmt/Social Srvs [CONS] Routine Reason for Case Mgmt/Social Srvs: Discharge Planning Consult Comment: PT WITH SUBSTANCE ABUSE REQUESTING REHAB Discharging clinician: Erinn Srinivasan MD Expected date of discharge: 08/04/16
[2016-08-04 20:18] VITALS: BP 127/80
== END 2016-08-04 19:32 | disposition home or self-care (01) ==
LOC: N.EDINP 16:20 → N.ED 16:20 → SUATTDRO 18:39 → N.EDINP 20:07 → N.TELES 20:13
PROVIDERS: ADMIT Internal Medicine Infectious Disease; ATTEND Family Medicine
PROC: CLCCHCL (ICD-10-PCS; 2016-08-03 15:15)

== ENCOUNTER 2020-11-29 15:26 | Inpatient (IN) ==
[2020-11-29] MEDS ORDERED: SODIUM CHLORIDE 0.9% 1,000 ML IV STA (16:25)
[2020-11-29] MEDS ORDERED: VANCOMYCIN INJ 1,000 MG in SODIUM CHLORIDE 0.9% 250 ML IV STA (16:25)
[2020-11-29] MEDS ORDERED: ONDANSETRON 4 MG/2 ML VIAL IV STA (16:25)
[2020-11-29] MEDS ORDERED: MORPHINE 2 MG/1 ML SYRINGE IV STA (16:25)
[2020-11-29] MEDS ORDERED: MORPHINE 2 MG/1 ML SYRINGE ONE (16:30)
[2020-11-29 17:06] LABS: Basophils # 0.1 10*3/uL (0.0-0.2); Basophils % 0.4 % (0.0-0.8); Eosinophils # 0.1 10*3/uL (0.0-0.87); Eosinophils % 0.7 % (0.00-10.9); Hematocrit 35.5 VOL% (42.0-52.0); Hemoglobin 11.5 GM/DL (14.0-18.0); Immature Granulocytes % 1.5 %; Immature Granulocytes Absolute 0.22 #; Lymphocytes # 1.6 10*3/uL (1.4-4.0); Lymphocytes % 10.9 % (21.2-54.2); Mean Corpuscular HGB Conc 32.4 GM/DL (32-36); Mean Corpuscular Volume 88.1 FL (87-102); Mean Platelet Volume 9.5 FL (9.6-12.0); Monocytes % 3.8 % (1.7-12.7); Neutrophils % 82.7 % (38.7-73.9); Platelet Count 536 T/CUMM (130-400); Red Blood Count 4.03 MC/CUMM (3.8-5.5); Red Cell Distribution Width 13.2 % (9.3-17.3); White Blood Count 14.9 T/CUMM (4-12)
[2020-11-29 17:23] LABS: Albumin 1.8 G/DL (3.4-5.0); Bilirubin,Total 0.7 MG/DL (0.20-1.00); Calcium 8.8 MG/DL (8.5-10.1); Osmolality,Calculated 277.4 MOS/KG (273-304); Potassium 3.6 MMOL/L (3.5-5.1)
[2020-11-29 17:27] LABS: INR 1.2; PT Patient Result 13.1 SECS (10.5-12.0); Partial Thromboplastin Time 31.3 SECS (23.9-33.8)
[2020-11-29] MEDS ORDERED: HYDROmorphone 2 MG/1 ML VIAL ONE (18:08)
[2020-11-29] MEDS ORDERED: HYDROmorphone 2 MG/1 ML VIAL IV STA (18:22)
[2020-11-29] MEDS ORDERED: ONDANSETRON 4 MG/2 ML VIAL IV PRN (19:13)
[2020-11-29] MEDS ORDERED: DEXTROSE 50% 25 GM/50 ML VIAL IV PRN (19:13)
[2020-11-29] MEDS ORDERED: GLUCAGON 1 MG VIAL IM PRN (19:13)
[2020-11-29] MEDS ORDERED: cefTRIAXone 1,000 MG VIAL ONE (20:13)
[2020-11-29] MEDS: LACTATED RINGERS 1,000 ML IV SCH (20:20)
[2020-11-29] MEDS: cefTRIAXone 2,000 MG in SODIUM CHLORIDE 0.9% 100 ML IV SCH (20:20)
[2020-11-29] MEDS: ENOXAPARIN 100 MG/ML SYRINGE SUBCUT SCH (20:20)
[2020-11-29] MEDS: INSULIN REGULAR 100 UNIT/ML SUBCUT SCH (22:45)
[2020-11-29] MEDS: MORPHINE 2 MG/1 ML SYRINGE IV PRN (22:45)
[2020-11-30] MEDS: LACTATED RINGERS 1,000 ML IV SCH ×3 (03:46→23:40)
[2020-11-30] MEDS: VANCOMYCIN INJ 1,500 MG in SODIUM CHLORIDE 0.9% 500 ML IV SCH ×2 (04:07→17:56)
[2020-11-30] MEDS: MORPHINE 2 MG/1 ML SYRINGE IV PRN ×3 (04:07→14:43)
[2020-11-30 05:12] LABS: Basophils # 0.1 10*3/uL (0.0-0.2); Basophils % 0.5 % (0.0-0.8); Eosinophils # 0.1 10*3/uL (0.0-0.87); Hematocrit 35.2 VOL% (42.0-52.0); Immature Granulocytes % 1.5 %; Immature Granulocytes Absolute 0.22 #; Lymphocytes # 1.7 10*3/uL (1.4-4.0); Lymphocytes % 11.7 % (21.2-54.2); Mean Corpuscular HGB Conc 31.3 GM/DL (32-36); Mean Corpuscular Volume 90.3 FL (87-102); Mean Platelet Volume 9.6 FL (9.6-12.0); Monocytes % 3.2 % (1.7-12.7); Neutrophils % 82.1 % (38.7-73.9); Platelet Count 482 T/CUMM (130-400); Red Cell Distribution Width 13.1 % (9.3-17.3); White Blood Count 14.5 T/CUMM (4-12)
[2020-11-30 05:36] LABS: Albumin 1.4 G/DL (3.4-5.0); Bilirubin,Total 0.5 MG/DL (0.20-1.00); Calcium 8.2 MG/DL (8.5-10.1); Osmolality,Calculated 278.7 MOS/KG (273-304); Potassium 3.8 MMOL/L (3.5-5.1); Thyroid Stimulating Hormone 4.39 uIU/ml (0.358-3.74); Total Protein 5.7 G/DL (6.4-8.2)
[2020-11-30] MEDS ORDERED: INFLUENZA VIRUS VACCINE 0.5 ML SYRINGE IM ONE (09:00)
[2020-11-30] MEDS: ENOXAPARIN 100 MG/ML SYRINGE SUBCUT SCH ×2 (09:18→21:59)
[2020-11-30] MEDS: INSULIN REGULAR 100 UNIT/ML SUBCUT SCH ×4 (09:19→21:56)
[2020-11-30] MEDS ORDERED: LIDOCAINE 1%/EPI INJ 20 ML VIAL ONE (10:45)
[2020-11-30] MEDS ORDERED: BUPIVACAINE MPF 0.25% 30 ML VIAL ONE (10:45)
[2020-11-30] MEDS ORDERED: FAMOTIDINE 20 MG/2 ML VIAL IV ONE (11:27)
[2020-11-30] MEDS ORDERED: PHENYLEPHRINE 1 MG/10 ML SYRINGE IV ONE (11:48)
[2020-11-30] MEDS ORDERED: fentaNYL 100 MCG/2 ML VIAL ONE (11:53)
[2020-11-30] MEDS ORDERED: ACETAMINOPHEN INJ 1,000 MG/100 ML VIAL IV ONE (11:54)
[2020-11-30] MEDS ORDERED: LIDOCAINE 2% 5 ML VIAL ONE (11:55)
[2020-11-30] MEDS ORDERED: SUCCINYLCHOLINE 200 MG/10 ML VIAL ONE (11:55)
[2020-11-30] MEDS ORDERED: propofoL 200 MG/20 ML VIAL IV ONE (11:55)
[2020-11-30] MEDS ORDERED: PHENYLEPHRINE 10 MG/1 ML VIAL IV ONE (12:00)
[2020-11-30] MEDS ORDERED: ONDANSETRON 4 MG/2 ML VIAL ONE (12:05)
[2020-11-30] MEDS ORDERED: DEXAMETHASONE 4 MG/1 ML VIAL ONE (12:05)
[2020-11-30] MEDS ORDERED: SODIUM CHLORIDE 0.9% 1,000 ML IV ONE (12:17)
[2020-11-30] MEDS ORDERED: SEVOFLURANE 1 UNIT/15 MINUTE INH ONE (12:17)
[2020-11-30] MEDS ORDERED: MEPERIDINE 25 MG/1 ML VIAL IV PRN ×2 (12:57→13:07)
[2020-11-30] MEDS ORDERED: ONDANSETRON 4 MG/2 ML VIAL IV PRN ×2 (12:57→13:07)
[2020-11-30] MEDS ORDERED: diphenhydrAMINE 50 MG/1 ML VIAL IV PRN ×2 (12:57→13:07)
[2020-11-30] MEDS ORDERED: PROMETHAZINE 25 MG/1 ML VIAL ONE (13:04)
[2020-11-30] MEDS ORDERED: PROMETHAZINE INJ 25 MG in SODIUM CHLORIDE 0.9% 50 ML IV PRN (13:07)
[2020-11-30] MEDS ORDERED: INSULIN GLARGINE 100 UNIT/ML SUBCUT SCH (21:00)
[2020-11-30] MEDS: cefTRIAXone 2,000 MG in SODIUM CHLORIDE 0.9% 100 ML IV SCH (21:57)
[2020-12-01] MEDS ORDERED: GLUCAGON 1 MG VIAL IM PRN ×2 (00:36→12:28)
[2020-12-01] MEDS ORDERED: SODIUM CHLORIDE 0.9% 1,000 ML IV ONE (00:36)
[2020-12-01] MEDS ORDERED: DEXTROSE 50% 25 GM/50 ML VIAL IV PRN ×2 (00:36→12:28)
[2020-12-01] MEDS: INSULIN LISPRO 100 UNIT/ML SUBCUT SCH ×6 (02:47→22:16)
[2020-12-01] MEDS: VANCOMYCIN INJ 1,500 MG in SODIUM CHLORIDE 0.9% 500 ML IV SCH ×2 (05:47→17:15)
[2020-12-01] MEDS: LACTATED RINGERS 1,000 ML IV SCH ×2 (05:48→16:25)
[2020-12-01] MEDS: MORPHINE 2 MG/1 ML SYRINGE IV PRN ×5 (05:54→22:05)
[2020-12-01] MEDS: ENOXAPARIN 100 MG/ML SYRINGE SUBCUT SCH ×2 (09:13→20:57)
[2020-12-01] MEDS ORDERED: INSULIN REGULAR 100 UNIT/ML IV ONE (12:29)
[2020-12-01] MEDS: cefTRIAXone 2,000 MG in SODIUM CHLORIDE 0.9% 100 ML IV SCH (20:57)
[2020-12-01] MEDS ORDERED: INSULIN GLARGINE 100 UNIT/ML SUBCUT SCH ×2 (21:00)
[2020-12-02] MEDS: LACTATED RINGERS 1,000 ML IV SCH ×2 (02:55→03:53)
[2020-12-02] MEDS: MORPHINE 2 MG/1 ML SYRINGE IV PRN (02:57)
[2020-12-02] MEDS: INSULIN LISPRO 100 UNIT/ML SUBCUT SCH ×2 (03:52→05:49)
[2020-12-02] MEDS: VANCOMYCIN INJ 1,500 MG in SODIUM CHLORIDE 0.9% 500 ML IV SCH (04:52)
[2020-12-02 05:38] LABS: Basophils # 0.1 10*3/uL (0.0-0.2); Basophils % 0.5 % (0.0-0.8); Eosinophils # 0.1 10*3/uL (0.0-0.87); Eosinophils % 0.4 % (0.00-10.9); Hematocrit 33.7 VOL% (42.0-52.0); Hemoglobin 10.6 GM/DL (14.0-18.0); Immature Granulocytes % 1.5 %; Lymphocytes # 1.8 10*3/uL (1.4-4.0); Lymphocytes % 13.5 % (21.2-54.2); Mean Corpuscular HGB Conc 31.5 GM/DL (32-36); Mean Corpuscular Volume 89.6 FL (87-102); Mean Platelet Volume 9.4 FL (9.6-12.0); Monocytes % 3.2 % (1.7-12.7); Neutrophils % 80.9 % (38.7-73.9); Platelet Count 550 T/CUMM (130-400); Red Blood Count 3.76 MC/CUMM (3.8-5.5); Red Cell Distribution Width 13.2 % (9.3-17.3); White Blood Count 13.7 T/CUMM (4-12)
[2020-12-02 06:07] LABS: Calcium 8.6 MG/DL (8.5-10.1); Osmolality,Calculated 280.3 MOS/KG (273-304); Potassium 3.5 MMOL/L (3.5-5.1)
[2020-12-02] MEDS ORDERED: BUPIVACAINE MPF 0.25% 30 ML VIAL ONE (06:14)
[2020-12-02] MEDS ORDERED: LIDOCAINE 1%/EPI INJ 20 ML VIAL ONE (06:14)
[2020-12-02] MEDS ORDERED: LIDOCAINE 2% 5 ML VIAL ONE (07:18)
[2020-12-02] MEDS ORDERED: PHENYLEPHRINE 1 MG/10 ML SYRINGE IV ONE (07:18)
[2020-12-02] MEDS ORDERED: SUCCINYLCHOLINE 200 MG/10 ML VIAL ONE (07:18)
[2020-12-02] MEDS ORDERED: SEVOFLURANE 1 UNIT/15 MINUTE INH ONE (07:18)
[2020-12-02] MEDS ORDERED: ROCURONIUM 50 MG/5 ML VIAL IV ONE (07:18)
[2020-12-02] MEDS ORDERED: MIDAZOLAM 2 MG/2 ML VIAL ONE (07:18)
[2020-12-02] MEDS ORDERED: propofoL 200 MG/20 ML VIAL IV ONE (07:18)
[2020-12-02] MEDS ORDERED: fentaNYL 100 MCG/2 ML VIAL ONE ×2 (07:18→07:47)
[2020-12-02] MEDS ORDERED: ACETAMINOPHEN INJ 1,000 MG/100 ML VIAL IV ONE (07:43)
[2020-12-02] MEDS: ENOXAPARIN 100 MG/ML SYRINGE SUBCUT SCH (11:28)
[2020-12-02 14:29] VITALS: BP 116/77
== END 2020-12-02 10:55 | disposition left against medical advice (07) | DRG 603 ==
LOC: N.ED 15:26 → N.EDINP 19:13 → SUATTDRO 19:13 → N.3E 21:40
PROVIDERS: ADMIT Internal Medicine; ATTEND Internal Medicine Nephrology